=== PATIENT | female | born 1985 | race African-American/Black ===

== ENCOUNTER 2021-11-10 12:28 | Emergency (ER) | payer OTHER ==
[~2021-11-10] VITALS: Ht 170.2 cm; Wt 150.8 kg
[2021-11-10 13:14] VITALS: BP 144/82
[2021-11-10] MEDS ORDERED: ONDANSETRON 4 MG ODT PO ONE (13:50)
[2021-11-10] MEDS ORDERED: HYDROcodone/APAP 5/325 MG 1 TAB TAB PO ONE (13:50)
[2021-11-10 14:44] VITALS: BP 136/76
[2021-11-10] MEDS ORDERED: IBUP-1842 PO (14:54)
[2021-11-10] MEDS ORDERED: METH-1681 PO (14:54)
== END 2021-11-10 14:45 | disposition home or self-care (01) ==
LOC: MED 12:28
DX: M62.838 Other muscle spasm (principal); Z98.890 Other specified postprocedural states; V89.2XXA Person injured in unspecified motor-vehicle accident, traffic, initial encounter; Y93.89 Activity, other specified; Y92.89 Other specified places as the place of occurrence of the external cause; Y99.8 Other external cause status
CPT/HCPCS: 81025; 99283; Q0162

== ENCOUNTER 2021-12-10 01:20 | Emergency (ER) | payer OTHER ==
[~2021-12-10] VITALS: Ht 167.6 cm; Wt 149.3 kg
[~2021-12-10 01:20] MED LIST: IBUP-1842 PO; METH-1681 PO
[2021-12-10 01:47] VITALS: BP 113/56
--- NOTE | 2021-12-10 01:54 | NUR ---
PT AMBULATORY TO BED 12.
--- NOTE | 2021-12-10 02:18 | NUR ---
36 y/o female bibs, C/O LEFT FOOT PAIN X1 DAY. PATIENT PRESENTS TO ED WITH CMS INTACT, BRUISING TO TOP OF LEFT FOOT, AND PAIN. PT STATES SHE VISITED A CHIROPRACTOR EARLIER ON WEDNESDAY FOR PREVIOUS BACK PAIN, WHEN SHE LEFT HER FOOT WAS IN PAIN. SKIN IS PINK/WARM/DRY; AAOX4 WITH EVEN AND UNSTEADY GAIT; PT DENIES ANY FEVER, CP, SOB, OR COUGH AT THIS TIME; PATIENT STATES PAIN OF 10/10 AT THIS TIME; VSS; PATIENT POSITIONED FOR COMFORT; HOB ELEVATED; BEDRAILS UP X2; BED DOWN. ER MD MADE AWARE OF PT STATUS. HX: diverticulitis, chronic back pain, cholostomy reversal NKA
[2021-12-10] MEDS ORDERED: LIDOCAINE OINTMENT 5% 35 GM TUBE TP ONE (02:20)
[2021-12-10] MEDS ORDERED: KETOROLAC 30 MG/ML VIAL IM ONE (02:20)
[2021-12-10] MEDS ORDERED: IBUP-2213 PO (02:40)
[2021-12-10] MEDS ORDERED: [UNRECOGNIZED DRUG - CODE] PO (02:40)
[2021-12-10] MEDS ORDERED: EMLAC TP (02:40)
[2021-12-10 03:13] VITALS: BP 113/56
--- NOTE | 2021-12-10 03:14 | NUR ---
Patient discharged with v/s stable. Written and verbal after care instructions given and explained. Patient alert, oriented and verbalized understanding of instructions. Ambulatory with steady gait. All questions addressed prior to discharge. ID band removed. Patient advised to follow up with PMD. Rx of ACETAMINOPHEN, LIDOCAINE/PRILOCAINE CREAM, AND IBUPROFEN given. Patient educated on indication of medication including possible reaction and side effects. Opportunity to ask questions provided and answered. A/OX4, VSS, AMBULATORY, UNLABORED BREATHING, AND CALM DEMEANOR.
== END 2021-12-10 03:14 | disposition home or self-care (01) ==
LOC: MED 01:20
DX: S90.32XA Contusion of left foot, initial encounter (principal); F17.210 Nicotine dependence, cigarettes, uncomplicated; Z98.890 Other specified postprocedural states; Z79.1 Long term (current) use of non-steroidal anti-inflammatories (NSAID); Z79.899 Other long term (current) drug therapy; V89.2XXA Person injured in unspecified motor-vehicle accident, traffic, initial encounter; Y93.89 Activity, other specified; Y92.410 Unspecified street and highway as the place of occurrence of the external cause; Y99.8 Other external cause status
CPT/HCPCS: 96372; 99283; J1885

== ENCOUNTER 2023-06-13 10:57 | Emergency (ER) | payer OTHER ==
[~2023-06-13] VITALS: Ht 170.2 cm; Wt 135.6 kg
[~2023-06-13 10:57] MED LIST changes: +EMLAC TP; +IBUP-2213 PO; +[UNRECOGNIZED DRUG - CODE] PO
[2023-06-13 11:13] VITALS: BP 140/91; PULSE 62; RESP 16; TEMP 97.6; O2SAT 98
[2023-06-13] MEDS ORDERED: ACETAMINOPHEN EXTRA STRENGTH 500 MG TAB PO ONE (11:30)
[2023-06-13] MEDS ORDERED: ACET-10509 PO (12:58)
[2023-06-13] MEDS ORDERED: BENZ200C4 PO (12:58)
[2023-06-13] MEDS ORDERED: ROB PO (12:58)
[2023-06-13 13:23] VITALS: BP 122/87; PULSE 62; RESP 16; TEMP 97.6; O2SAT 98
== END 2023-06-13 13:24 | disposition home or self-care (01) ==
LOC: MED 10:57
DX: J06.9 Acute upper respiratory infection, unspecified (principal); Z79.899 Other long term (current) drug therapy
CPT/HCPCS: 99283

== ENCOUNTER 2024-01-28 03:40 | Emergency (ER) | payer OTHER ==
[~2024-01-28] VITALS: Ht 170.2 cm; Wt 108.9 kg
[~2024-01-28 03:40] MED LIST changes: +ACET-10509 PO; +BENZ200C4 PO; +ROB PO
[2024-01-28 03:45] VITALS: BP 138/78; PULSE 70; RESP 16; TEMP 97.4; O2SAT 100
[2024-01-28] MEDS: DEXAMETHASONE 10 MG/ML VIAL IVP ONE (04:53)
[2024-01-28] MEDS: FAMOTIDINE 20 MG/2 ML VIAL IVP ONE (04:53)
[2024-01-28] MEDS: diphenhydrAMINE 50 MG/ML VIAL IVP ONE (04:53)
[2024-01-28] MEDS ORDERED: FAMO-368 PO (05:41)
[2024-01-28 05:54] VITALS: BP 130/78; PULSE 72; RESP 16; TEMP 97.4; O2SAT 100
== END 2024-01-28 05:54 | disposition home or self-care (01) ==
LOC: MED 03:40
DX: L50.9 Urticaria, unspecified (principal); Z79.1 Long term (current) use of non-steroidal anti-inflammatories (NSAID); Z79.899 Other long term (current) drug therapy
CPT/HCPCS: 96374; 96375; 99284; J1100; J1200; J3490

== ENCOUNTER 2024-05-18 17:40 | Emergency (ER) | payer OTHER ==
[~2024-05-18] VITALS: Ht 170.2 cm; Wt 123.8 kg
[~2024-05-18 17:40] MED LIST changes: -ACET-10509 PO; +ACET500T99 PO; +FAMO-368 PO
[2024-05-18 18:02] VITALS: BP 157/84; PULSE 75; RESP 18; TEMP 97.3; O2SAT 99
[2024-05-18 18:47] VITALS: TEMP 97.3
[2024-05-18 19:19] LABS: APPEARANCE,URINE SLIGHTLY HAZY (CLEAR); BILIRUBIN,URINE NEGATIVE (NEGATIVE); BLOOD, URINE NEGATIVE (NEGATIVE); COLOR,URINE YELLOW (YELLOW); LEUKOCYTE ESTERASE ,URINE NEGATIVE (NEGATIVE); NITRITE, URINE NEGATIVE (NEGATIVE); PROTEIN,URINE TRACE (NEGATIVE); UGLUCOSE NEGATIVE (NEGATIVE); UROBILINOGEN,URINE 0.2 EU/dL (0.2 - 1)
[2024-05-18 19:23] LABS: BACTERIA,URINE 1+ /HPF (None Seen); MUCUS,URINE None Seen /LPF (None Seen); RBC,URINE 0-5 /HPF (0-5); SQUAMOUS EPITHELIAL CELL,UR 4-10 (MOD) /LPF (0-3 (FEW)); WBC,URINE 0-5 /HPF (0-5)
[2024-05-18 19:24] LABS: BASOPHILS # (AUTO) 0.1 K/uL (0.00-0.22); BASOPHILS % (AUTO) 1.2 % (0.0-2.0); EOSINOPHILS # (AUTO) 0.2 K/uL (0-0.4); EOSINOPHILS % (AUTO) 2.6 % (0.0-4.0); HEMATOCRIT 33.9 % (36-48); HEMOGLOBIN 11.3 g/dL (12.0-16.0); LYMPHOCYTES # (AUTO) 2.5 K/uL (2.5-16.5); LYMPHOCYTES % (AUTO) 30.2 % (20.5-51.1); MEAN CORPUSCULAR HEMOGLOBIN 28 pg (27-31); MEAN CORPUSCULAR HGB CONC 33 g/dL (33-37); MEAN CORPUSCULAR VOLUME 85.2 fL (80-94); MONOCYTES # (AUTO) 0.5 K/uL (0.8-1.0); MONOCYTES % (AUTO) 5.4 % (1.7-9.3); NEUTROPHILS # (AUTO) 5.1 K/uL (1.8-7.7); NEUTROPHILS % (AUTO) 60.6 % (42.2-75.2); PLATELET COUNT (AUTO) 335 K/uL (140-450); RED BLOOD CELL COUNT(AUTO) 3.97 MIL/uL (4.20-5.40); RED CELL DISTRIBUTION WIDTH 16.2 % (11.6-13.7); WHITE BLOOD COUNT (AUTO) 8.3 K/uL (4.8-10.8)
[2024-05-18 19:28] LABS: ANION GAP 9.8 (8-16); CALCIUM 8.4 mg/dL (8.5-10.1); CARBON DIOXIDE 28.8 mmol/L (21-32); CREATININE 1.2 mg/dL (0.6-1.3); POTASSIUM 3.6 mmol/L (3.5-5.1)
[2024-05-18] MEDS: NACL 0.9% 1,000 ML IV ONE (19:33)
[2024-05-18 19:34] LABS: ALBUMIN 3.2 g/dL (3.4-5.0); TOTAL BILIRUBIN 0.3 mg/dL (0.0-1.0); TOTAL PROTEIN, SERUM 6.9 g/dL (6.4-8.2)
[2024-05-18] MEDS ORDERED: ONDANSETRON 4 MG/2 ML VIAL ONE (19:57)
[2024-05-18] MEDS ORDERED: MORPHINE SULFATE 4 MG/ML SYR ONE (19:58)
[2024-05-18] MEDS: MORPHINE SULFATE 4 MG/ML SYR IVP ONE (20:04)
[2024-05-18] MEDS: ONDANSETRON 4 MG/2 ML VIAL IVP ONE (20:04)
[2024-05-18 20:49] VITALS: BP 151/80; PULSE 81; RESP 28
[2024-05-18 23:57] VITALS: O2SAT 97
[2024-05-19] MEDS ORDERED: BEN10 PO (01:05)
== END 2024-05-19 01:23 | disposition home or self-care (01) ==
LOC: MED 17:40
DX: K43.9 Ventral hernia without obstruction or gangrene (principal); R11.2 Nausea with vomiting, unspecified; Z87.19 Personal history of other diseases of the digestive system; Z98.890 Other specified postprocedural states; Z79.899 Other long term (current) drug therapy
CPT/HCPCS: 36415; 74177; 80048; 80076; 81001; 81025; 83690; 85025; 96360; 99285; J2405; J7030; Q9967; J2270